=== PATIENT | female | born 1960 | race Caucasian/White ===

== ENCOUNTER 2022-05-06 21:34 | Emergency (ER) | payer MEDICAID, OTHER ==
--- NOTE | 2022-05-06 21:45 | ED Chest Pain ---
General Stated Complaint: SOB,CP History of Present Illness Date Seen by Provider: May 06, 2022 Time Seen by Provider: 21:43 Initial Comments 61-year-old female with PMH of anxiety, who is currently being treated for pyelonephritis on Bactrim, is here with complaints of anxiety and feeling stressed, causing her to feel chest pressure. The symptoms have been going on for the past couple of days. Denies palpitations, fever, diarrhea, abdominal pain, headaches, dizziness. Allergies and Home Medications Allergies Coded Allergies: No Known Drug Allergies (Unverified , 05/06/22) Patient Home Medication List Home Medication List Reviewed: Yes Review of Systems Review of Systems Constitutional: no symptoms reported EENTM: No Symptoms Reported Respiratory: No Symptoms Reported Cardiovascular: Chest Pain Gastrointestinal: No Symptoms Reported Genitourinary: No Symptoms Reported Musculoskeletal: no symptoms reported Skin: no symptoms reported Psychiatric/Neurological: Anxiety Endocrine: No Symptoms Reported Hematologic/Lymphatic: No Symptoms Reported Physical Exam Vital Signs Vital Signs - First Documented 05/06/22 21:35 Temp 36.6 Pulse 69 Resp 16 B/P (MAP) 137/91 (106) Pulse Ox 99 O2 Delivery Room Air Capillary Refill : Height, Weight, BMI Height: '" Weight: lbs. oz. kg; BMI Method: General Appearance: No Apparent Distress, Anxious, Thin HEENT: PERRL/EOMI Respiratory: Chest Non Tender, Lungs Clear, Normal Breath Sounds, No Accessory Muscle Use Cardiovascular: Regular Rate, Rhythm, No Edema, Normal Peripheral Pulses Gastrointestinal: Non Tender, Soft Neurologic/Psychiatric: Alert, Oriented x3, No Motor/Sensory Deficits Skin: Normal Color Lymphatic: No Adenopathy Focused Exam Lactate Level 05/06/22 22:00: Lactic Acid Level 1.03 Lactic Acid Level Laboratory Tests Test 05/06/22 22:00 Lactic Acid Level 1.03 MMOL/L (0.50-2.00) Progress/Results/Core Measures Results/Orders Lab Results Laboratory Tests Test 05/06/22 21:41 05/06/22 22:00 05/06/22 22:51 Range/Units White Blood Count 7.7 4.3-11.0 10^3/uL Red Blood Count 4.40 3.80-5.11 10^6/uL Hemoglobin 13.1 11.5-16.0 g/dL Hematocrit 39 35-52 % Mean Corpuscular Volume 88 80-99 fL Mean Corpuscular Hemoglobin 30 25-34 pg Mean Corpuscular Hemoglobin Concent 34 32-36 g/dL Red Cell Distribution Width 12.9 10.0-14.5 % Platelet Count 265 130-400 10^3/uL Mean Platelet Volume 10.3 9.0-12.2 fL Immature Granulocyte % (Auto) 0 % Neutrophils (%) (Auto) 37 L 42-75 % Lymphocytes (%) (Auto) 53 H 12-44 % Monocytes (%) (Auto) 8 0-12 % Eosinophils (%) (Auto) 2 0-10 % Basophils (%) (Auto) 1 0-10 % Neutrophils # (Auto) 2.8 1.8-7.8 10^3/uL Lymphocytes # (Auto) 4.0 1.0-4.0 10^3/uL Monocytes # (Auto) 0.6 0.0-1.0 10^3/uL Eosinophils # (Auto) 0.1 0.0-0.3 10^3/uL Basophils # (Auto) 0.1 0.0-0.1 10^3/uL Immature Granulocyte # (Auto) 0.0 0.0-0.1 10^3/uL Prothrombin Time 12.1 L 12.2-14.7 SEC INR Comment 0.9 0.8-1.4 Activated Partial Thromboplast Time 29 24-35 SEC D-Dimer 0.35 0.00-0.49 UG/ML Sodium Level 138 135-145 MMOL/L Potassium Level 3.8 3.6-5.0 MMOL/L Chloride Level 104 98-107 MMOL/L Carbon Dioxide Level 23 21-32 MMOL/L Anion Gap 11 5-14 MMOL/L Blood Urea Nitrogen 11 7-18 MG/DL Creatinine 1.06 0.60-1.30 MG/DL Estimat Glomerular Filtration Rate 60 BUN/Creatinine Ratio 10 Glucose Level 103 70-105 MG/DL Calcium Level 9.2 8.5-10.1 MG/DL Corrected Calcium 8.8 8.5-10.1 MG/DL Magnesium Level 2.0 1.6-2.4 MG/DL Total Bilirubin 0.2 0.1-1.0 MG/DL Aspartate Amino Transf (AST/SGOT) 16 5-34 U/L Alanine Aminotransferase (ALT/SGPT) 15 0-55 U/L Alkaline Phosphatase 67 40-136 U/L Troponin I < 0.30 < 0.30 <0.30 NG/ML Pro-B-Type Natriuretic Peptide 56.6 <125.0 PG/ML Total Protein 7.0 6.4-8.2 GM/DL Albumin 4.5 3.2-4.5 GM/DL Lactic Acid Level 1.03 0.50-2.00 MMOL/L My Orders Orders - GILBERT ANDRE MD Chest 1 View Ap/Pa Only (05/06/22 21:44) Cbc With Automated Diff (05/06/22 21:46) Comprehensive Metabolic Panel (05/06/22 21:46) Fibrin Degradation Products (05/06/22:46) Lactic Acid Analyzer (05/06/22:46) Magnesium (05/06/22 21:46) Protime With Inr (05/06/22:46) Partial Thromboplastin Time (05/06/22 21:46) Ua Culture If Indicated (05/06/22:46) Probnp Fs (05/06/22 21:46) Troponin I Fs (05/06/22 21:46) Aspirin Chewable Tablet (Baby Aspirin Ch (05/06/22 22:00) Troponin I Fs (05/06/22 22:44) Ekg Tracing (05/06/22 22:44) Medications Given in ED Current Medications Medications Dose Ordered Sig/Benjamin Route Start Time Stop Time Status Last Admin Dose Admin Aspirin 324 mg ONCE ONCE PO 05/06/22 22:00 05/06/22 22:01 DC 05/06/22 22:06 324 MG Vital Signs/I&O 05/06/22 21:35 Temp 36.6 Pulse 69 Resp 16 B/P (MAP) 137/91 (106) Pulse Ox 99 O2 Delivery Room Air Progress Progress Note : Progress Note 1. ACS RULE OUT: - CXR: unremarkable - Troponin/ EKG x 2: non-ischemic - CBC/ CMP/ COaf panel: unremarkable - ASA 324mg STAT - Follow up with PCP within 3 to 5 days -The patient was seen in the ED, and treated appropriately to presentation at a specific point in time. Patient is informed that there is a possibility that disease and illness can evolve and change in acuity rapidly or slowly after patient is discharged from the ER. Precautionary advice given to the patient for immediate return to ER if symptoms worsen or do not resolve, and to seek emergency care sooner rather than later. Pt also advised on the importance of PCP follow up and compliance with management and follow up plan with PCP and/or specialist, as this is part of the management plan. Pt verbally expressed understanding. Initial ECG Impression Date: May 06, 2022 Initial ECG Impression Time: 21:39 Initial ECG Rate: 65 Initial ECG Rhythm: Normal Sinus Initial ECG Impression: Normal Initial ECG Comparisson: No Previous ECG Available Diagnostic Imaging Diagonstic Imaging: Xray Plain Films/CT/US/NM/MRI: chest Comments [facility], [facility]. [place], [place] NAME: ANNIA MENDIETA [facility] REC#: [id number] PT STATUS: REG ER : 1960 PHYSICIAN: GILBERT ANDRE MD ADMIT DATE: 05/06/22/ER FS Draft Date of Exam:05/06/22 CHEST 1 VIEW AP/PA ONLY INDICATION: Chest pain. FINDINGS: The lungs are clear although hyperexpanded with features of air trapping. No failure, effusion or pneumothorax. IMPRESSION: Clear hyperexpanded lungs, otherwise negative. Dictated on workstation # [id number] Dict: 05/06/222158 Trans: 05/06/222200 [facility] [id number] Interpreted by: ANDRES ENRIQUE Electronically signed by: Departure Impression Primary Impression: Ruled out for myocardial infarction Additional Impression: Anxiety Disposition: 01 HOME, SELF-CARE Condition: Stable Departure-Patient Inst. Patient Instructions: Anxiety, Adult ED Add. Discharge Instructions: - Follow up with PCP within 3 to 5 days -Return to ER if symptoms worsen or continue GILBERT ANDRE MD May 06, 2022 21:45
[2022-05-06 21:53] LABS: BASOPHILS # (AUTO) 0.1 10^3/uL (0.0-0.1); BASOPHILS % (AUTO) 1 % (0-10); EOSINOPHILS # (AUTO) 0.1 10^3/uL (0.0-0.3); EOSINOPHILS % (AUTO) 2 % (0-10); HEMATOCRIT 39 % (35-52); HEMOGLOBIN 13.1 g/dL (11.5-16.0); LYMPHOCYTES % (AUTO) 53 % (12-44); MEAN CORPUSCULAR HEMOGLOBIN 30 pg (25-34); MEAN CORPUSCULAR HGB CONC 34 g/dL (32-36); MEAN CORPUSCULAR VOLUME 88 fL (80-99); MEAN PLATELET VOLUME 10.3 fL (9.0-12.2); MONOCYTES # (AUTO) 0.6 10^3/uL (0.0-1.0); MONOCYTES % (AUTO) 8 % (0-12); NEUTROPHILS # (AUTO) 2.8 10^3/uL (1.8-7.8); NEUTROPHILS % (AUTO) 37 % (42-75); PLATELET COUNT 265 10^3/uL (130-400); WHITE BLOOD COUNT 7.7 10^3/uL (4.3-11.0)
[2022-05-06] MEDS ORDERED: ASPIRIN 81 MG CHEW (CHILDREN'S ASA) PO ONE (22:00)
--- NOTE | 2022-05-06 22:02 | Diagnostic Imaging Report ---
INDICATION: Chest pain. FINDINGS: The lungs are clear although hyperexpanded with features of air trapping. No failure, effusion or pneumothorax. IMPRESSION: Clear hyperexpanded lungs, otherwise negative. Dictated by: Dictated on workstation # [id number]
[2022-05-06 22:12] LABS: FIBRIN DEGRADATION PRODUCTS 0.35 UG/ML (0.00-0.49); INR 0.9 (0.8-1.4); PROTHROMBIN TIME PATIENT 12.1 SEC (12.2-14.7)
[2022-05-06 22:22] LABS: ALANINE AMINOTRANSFERASE 15 U/L (0-55); ALKALINE PHOSPHATASE 67 U/L (40-136); BILIRUBIN,TOTAL 0.2 MG/DL (0.1-1.0); BUN/CREATININE RATIO 10; CALCIUM 9.2 MG/DL (8.5-10.1); CARBON DIOXIDE 23 MMOL/L (21-32); CHLORIDE 104 MMOL/L (98-107); CREATININE SERUM 1.06 MG/DL (0.60-1.30); GFR ESTIMATED 60; GLUCOSE 103 MG/DL (70-105); POTASSIUM 3.8 MMOL/L (3.6-5.0); SODIUM 138 MMOL/L (135-145)
[2022-05-06 22:23] LABS: ALBUMIN 4.5 GM/DL (3.2-4.5)
[2022-05-06 23:38] VITALS: BP 133/81
== END 2022-05-06 23:43 | disposition home or self-care (01) ==
LOC: ER FS 21:36
DX: F41.9 Anxiety disorder, unspecified (principal); Z87.448 Personal history of other diseases of urinary system; Z79.2 Long term (current) use of antibiotics; Z28.310 Unvaccinated for COVID-19
CPT/HCPCS: 36415; 71045; 80053; 83605; 83735; 83880; 84484; 85025; 85379; 85610; 85730; 93005